=== PATIENT | female | born 1990 | race Caucasian/White ===

== ENCOUNTER 2017-11-05 10:46 | Emergency (ER) | payer BC, MEDICAID ==
[2017-11-05] MEDS ORDERED: NS 0.9% 1000 ML* 1,000 ML IV ONE (11:10)
[2017-11-05] MEDS ORDERED: Ondansetron INJ* 2 MG/ML VIAL IV ONE (11:10)
--- NOTE | 2017-11-05 11:15 | ED ---
- HPI Summary HPI Summary: Patient is a 27 her old female who presents emergency department for nausea and vomiting 5 days. Patient is currently 17 weeks . A0. Patient has been following with OB and has had a confirmed intrauterine . Reports no complications thus far with this other than frequent N/V. Pt. states she has not kept down any liquid in the last 5 days. Reports constipation. Denies urinary sxs, vaginal bleeding or discharge. Admits to mild lower abd. pain. Symptoms are moderate in severity. No current modifying factors. Pt. states she has tried zofran, unisom, stephen and another prescribed antiemetic with no improvement. - History of Current Complaint Chief Complaint: EDOBProblems Stated Complaint: VOMITING-17WKS PREG Time Seen by Provider: 11/05/17 11:01 Pain Intensity: 5 - Assessment Hx Now: No - Allergies/Home Medications Allergies/Adverse Reactions: Allergies Allergy/AdvReac Type Severity Reaction Status Date / Time codeine Allergy Severe Vomiting Verified 11/05/17 11:05 PMH/Surg Hx/FS Hx/Imm Hx Endocrine/Hematology History: Denies: Hx Diabetes, Hx Thyroid Disease Cardiovascular History: Denies: Hx Hypertension Respiratory History: Denies: Hx Asthma, Hx Chronic Obstructive Pulmonary Disease (COPD) GI History: Reports: Other GI Disorders - RUQ pain with palpation by . Denies: Hx Ulcer Infectious Disease History: No Infectious Disease History: Denies: Hx Clostridium Difficile, Hx Hepatitis, Hx Human Immunodeficiency Virus (HIV), Hx of Known/Suspected MRSA, Hx Shingles, Hx Tuberculosis, Hx Known/ Suspected VRE, Hx Known/Suspected VRSA, History Other Infectious Disease, Traveled Outside the in Last 30 Days - Social History Occupation: Employed Full-time Lives: With Family Alcohol Use: Occasionally Substance Use Type: Reports: None Smoking Status (MU): Heavy Every Day Tobacco Smoker Type: Cigarettes Amount Used/How Often: 5 CIG/DAY Review of Systems Constitutional: Negative Positive: Fever, Chills Eyes: Negative ENT: Negative Cardiovascular: Negative Respiratory: Negative Positive: Abdominal Pain, Vomiting, Nausea Genitourinary: Negative Positive: burning, dysuria, discharge, frequency Musculoskeletal: Negative Skin: Negative Neurological: Negative All Other Systems Reviewed And Are Negative: Yes Physical Exam - Physical Exam Triage Information Reviewed: Yes Vital Signs Reviewed: Yes Appearance: Positive: Well-Appearing - Pt. sitting up in bed in NAD. Skin: Positive: Warm, Dry Eyes: Positive: Normal Respiratory/Lung Sounds: Positive: Clear to Auscultation, Breath Sounds Present Cardiovascular: Positive: Normal, RRR Abdomen Description: Positive: Other: - Obese. Abdomen is soft and nontender throughout. Sickness or guarding. Neurological: Positive: Normal, CN Intact II-III Psychiatric: Positive: Normal Diagnostics - Vital Signs Vital Signs Temp Pulse Resp BP Pulse Ox 11/05/17 10:56 97 F 99 16 130/86 98 - Laboratory Result Diagrams: 11/05/17 11:22 11/05/17 11:22 Lab Statement: Any lab studies that have been ordered have been reviewed, and results considered in the medical decision making process. Course/Dx - Course Course Of Treatment: Patient presenting to emergency Department in early second trimester for ongoing nausea and vomiting 5 days. She is afebrile stable vital signs. Patient has no reproducible abdominal pain on exam is benign abdomen. We will check basic labs and urine. Patient started on IV fluids and Zofran. Labs are unremarkable. Results were discussed. On re-exam pt. is resting comfortably and tolerating PO fluids. 40meq PO K was given. Pt. is comfortable going home. To call her OB tomorrow for f.u. To return to ER if sxs change or worsen. - Differential Diagnosis/HQI/PQRI: Hyperemesis Gravidarum, UTI - Diagnoses Provider Diagnoses: Hyperemesis gravidarum Discharge - Sign-Out/Discharge Documenting (check all that apply): Discharge - Discharge Plan Condition: Good Disposition: HOME Patient Education Materials: Hyperemesis Gravidarum (ED), Hypokalemia (ED) Referrals: No Primary Care Phys,NOPCP [Primary Care Provider] - Additional Instructions: Follow up with your OB as scheduled Increase fluids Return to ER if symptoms change or worsen - Billing Disposition and Condition Condition: GOOD Disposition: HOME
[2017-11-05 11:41] LABS: ABS Basophils 0.1 10^3/ul (0-0.2); ABS Eosinophils 0.1 10^3/ul (0-0.6); ABS Lymphocytes 2.3 10^3/ul (1.0-4.8); ABS Monocytes 0.5 10^3/ul (0-0.8); ABS Neutrophils 7.6 10^3/ul (1.5-7.7); ABS Nucleated RBC 0 10^3/ul; Eosinophil % 0.5 % (0-6); Hematocrit 33 % (35-47); Hemoglobin 11.7 g/dl (12.0-16.0); Lymphocyte % 21.7 % (25-47); Mean Corpuscular HGB Conc 36 g/dl (31-36); Mean Corpuscular Hemoglobin 31 pg (27-31); Mean Corpuscular Volume 88 fL (80-97); Mean Platelet Volume 7.6 um3 (7.4-10.4); Nucleated Red Blood Cells % 0; Platelet Count 221 10^3/ul (150-450); Red Blood Count 3.72 10^6/ul (4.0-5.4); Red Cell Distribution Width 13 % (10.5-15); White Blood Count 10.6 10^3/ul (3.5-10.8)
[2017-11-05 12:00] LABS: EGFR Non-African American 139.4 (>60)
[2017-11-05] MEDS: Potassium Chlor TAB* 20 MEQ TAB.ER PO ONE ×2 (12:27→12:45)
[2017-11-05 12:54] LABS: Urine Appearance Clear; Urine Blood Negative (Negative); Urine Color Straw; Urine Ketones Negative (Negative); Urine Protein Negative (Negative); Urine Specific Gravity 1.002 (1.010-1.030); Urine Urobilinogen Negative (Negative)
[2017-11-05 13:19] VITALS: BP 107/69
== END 2017-11-05 13:16 | disposition home or self-care (01) ==
LOC: ED 10:46
DX: O21.0 Mild hyperemesis gravidarum (principal); Z3A.17 17 weeks gestation of pregnancy; R10.9 Unspecified abdominal pain; F17.210 Nicotine dependence, cigarettes, uncomplicated
CPT/HCPCS: 36415; 80053; 81003; 85025; 96374; 99283; A9270-GY; J2405

== ENCOUNTER 2017-12-23 19:25 | Emergency (ER) | payer MEDICAID, OTHER ==
[2017-12-23] MEDS ORDERED: Metoclopramide IV* 5 MG/ML 2 ML VIAL ONE (19:59)
[2017-12-23] MEDS ORDERED: NS 0.9% 1000 ML* 2,000 ML IV ONE (20:06)
[2017-12-23] MEDS ORDERED: Acetaminophen TAB* 325 MG PO ONE (20:06)
[2017-12-23] MEDS ORDERED: Metoclopramide IV* 5 MG/ML 2 ML VIAL IV SLOW PU ONE (20:15)
[2017-12-23] MEDS ORDERED: Famotidine IV* 10 MG/ML 2 ML (20 mg) IV SLOW PU ONE (20:16)
[2017-12-23 20:35] LABS: ABS Basophils 0 10^3/ul (0-0.2); ABS Eosinophils 0.1 10^3/ul (0-0.6); ABS Lymphocytes 2.5 10^3/ul (1.0-4.8); ABS Monocytes 0.7 10^3/ul (0-0.8); ABS Neutrophils 8.6 10^3/ul (1.5-7.7); ABS Nucleated RBC 0 10^3/ul; Eosinophil % 0.4 % (0-6); Hematocrit 34 % (35-47); Hemoglobin 11.7 g/dl (12.0-16.0); Lymphocyte % 20.9 % (25-47); Mean Corpuscular HGB Conc 35 g/dl (31-36); Mean Corpuscular Hemoglobin 31 pg (27-31); Mean Corpuscular Volume 89 fL (80-97); Mean Platelet Volume 7.8 um3 (7.4-10.4); Nucleated Red Blood Cells % 0; Platelet Count 223 10^3/ul (150-450); Red Blood Count 3.76 10^6/ul (4.0-5.4); Red Cell Distribution Width 13 % (10.5-15); Urine Appearance Clear; Urine Blood Negative (Negative); Urine Color Straw; Urine Ketones Negative (Negative); Urine Protein Negative (Negative); Urine Specific Gravity 1.002 (1.010-1.030); Urine Urobilinogen Negative (Negative); White Blood Count 11.9 10^3/ul (3.5-10.8)
[2017-12-23 20:57] LABS: EGFR Non-African American 136.5 (>60)
[2017-12-23] MEDS ORDERED: Potassium Chlor TAB* 20 MEQ TAB.ER PO ONE ×2 (21:00→22:14)
[2017-12-23 22:36] VITALS: BP 121/70
--- NOTE | 2017-12-23 22:38 | ED ---
Chelly Betts Emily, scribed for Minh Watson MD on 12/23/17 at 2013 . GI/ HPI - HPI Summary HPI Summary: This patient is a 27 year old F referred to [facility] by DENTAL LAB TECHNICIAN with a chief complaint of hematemesis that began today. Pt reports that she is 24 weeks and A0. The patient rates the pain 8/10 in severity. Symptoms aggravated by nothing. Symptoms alleviated by nothing. Patient reports burning chest and occasional diarrhea. Patient denies abd pain. Patient reports that she has been vomiting for the entirety of her . - History of Current Complaint Chief Complaint: EDNauseaVomitDiarrh Time Seen by Provider: 12/23/17 19:54 Stated Complaint: 24 WEEKS PREG/VOMITING BLOOD Hx Obtained From: Patient Hx Last Menstrual Period: 10/23/14 Onset/Duration: Started Days Ago, Atraumatic, Still Present Timing: Constant Severity: Severe Current Severity: Severe Pain Intensity: 8 Additional Signs & Symptoms: Positive: Other: - Positive burning chest and occasional diarrhea. Negative abd pain Aggravating Factor(s): Nothing Alleviating Factor(s): Nothing - Allergy/Home Medications Allergies/Adverse Reactions: Allergies Allergy/AdvReac Type Severity Reaction Status Date / Time codeine Allergy Severe Vomiting Verified 11/05/17 11:05 Home Medications: Home Medications NK [No Home Medications Reported] 12/23/17 [History Confirmed 12/23/17] PMH/Surg Hx/FS Hx/Imm Hx Previously Healthy: No Endocrine/Hematology History: Denies: Hx Diabetes, Hx Thyroid Disease Cardiovascular History: Denies: Hx Hypertension Respiratory History: Denies: Hx Asthma, Hx Chronic Obstructive Pulmonary Disease (COPD) GI History: Reports: Other GI Disorders - RUQ pain with palpation by . Denies: Hx Ulcer Infectious Disease History: No Infectious Disease History: Denies: Hx Clostridium Difficile, Hx Hepatitis, Hx Human Immunodeficiency Virus (HIV), Hx of Known/Suspected MRSA, Hx Shingles, Hx Tuberculosis, Hx Known/ Suspected VRE, Hx Known/Suspected VRSA, History Other Infectious Disease, Traveled Outside the [place] in Last 30 Days - Family History Known Family History: Positive: Diabetes - Social History Occupation: Employed Full-time Lives: With Family Alcohol Use: Occasionally Hx Substance Use: No Substance Use Type: Reports: None Hx Tobacco Use: Yes Smoking Status (MU): Heavy Every Day Tobacco Smoker Type: Cigarettes Amount Used/How Often: 5 CIG/DAY Review of Systems Positive: Other - Positive "burning" chest Positive: Diarrhea, Other - Positive hematemesis. Negative: Abdominal Pain All Other Systems Reviewed And Are Negative: Yes Physical Exam - Summary Physical Exam Summary: VITAL SIGNS: Reviewed. GENERAL: ~Patient is a well-developed and nourished (MALE OR FEMALE) who is lying comfortable in the stretcher. Patient is not in any acute respiratory distress. HEAD AND FACE: No signs of trauma. No ecchymosis, hematomas or skull depressions. No sinus tenderness. EYES: PERRLA, EOMI x 2, No injected conjunctiva, no nystagmus. EARS: Hearing grossly intact. Ear canals and tympanic membranes are within normal limits. MOUTH: Oropharynx within normal limits. NECK: Supple, trachea is midline, no adenopathy, no JVD, no carotid bruit, no c- spine tenderness, neck with full ROM. CHEST: Symmetric, no tenderness at palpation LUNGS: Clear to auscultation bilaterally. No wheezing or crackles. CVS: Regular rate and rhythm, S1 and S2 present, no murmurs or gallops appreciated. ABDOMEN: Soft, non-tender. No signs of distention. No rebound no guarding, and no masses palpated. Bowel sounds are normal. Fundal level is at 24 weeks EXTREMITIES: FROM in all major joints, no edema, no cyanosis or clubbing. NEURO: Alert and oriented x 3. No acute neurological deficits. Speech is normal and follows commands. SKIN: Dry and warm Triage Information Reviewed: Yes Vital Signs On Initial Exam: Initial Vitals Temp Pulse Resp BP Pulse Ox 98.3 F 80 16 117/68 99 12/23/17 19:28 12/23/17 19:28 12/23/17 19:28 12/23/17 19:28 12/23/17 19:28 Vital Signs Reviewed: Yes Diagnostics - Vital Signs Vital Signs Temp Pulse Resp BP Pulse Ox 12/23/17 19:28 98.3 F 80 16 117/68 99 - Laboratory Result Diagrams: 12/23/17 20:22 12/23/17 20:22 Lab Statement: Any lab studies that have been ordered have been reviewed, and results considered in the medical decision making process. Re-Evaluation - Re-Evaluation First Eval Re-Evaluation Time: :15 Change: Improved Comment: Discussed plan of care with the patient GIGU Course/Dx - Course Assessment/Plan: This patient is a 27 year old F referred to [facility] by DENTAL LAB TECHNICIAN with a chief complaint of hematemesis that began today. Pt reports that she is 24 weeks and . Bloodwork and UA obtained. In the ED course, the patient received Tylenol, Pepcid, Reglan, and fluids. Patient will be discharged home with potassium and with follow up from PCP and DENTAL LAB TECHNICIAN. Patient is agreeable with this plan. - Diagnoses Provider Diagnoses: Vomiting Discharge - Sign-Out/Discharge Documenting (check all that apply): Discharge/Admit/Transfer - Discharge home - Discharge Plan Condition: Stable Disposition: HOME Patient Education Materials: Nausea and Vomiting in (ED) Referrals: [facility] PHYSICIAN REFERRAL [Outside] - 3 Days [facility] [Provider Group] - 3 Days Additional Instructions: TAKE POTASSIUM 4 HOURS FROM NOW RETURN TO THE EMERGENCY DEPARTMENT FOR NEW OR WORSENING SYMPTOMS The documentation as recorded by the Chelly pino Emily accurately reflects the service I personally performed and the decisions made by me, Minh Watson MD.
== END 2017-12-23 22:38 | disposition home or self-care (01) ==
LOC: ED 19:25
DX: O21.2 Late vomiting of pregnancy (principal); O99.332 Smoking (tobacco) complicating pregnancy, second trimester; Z3A.24 24 weeks gestation of pregnancy; Z88.5 Allergy status to narcotic agent
CPT/HCPCS: 36415; 80053; 81003; 82150; 83690; 85025; 96374; 96375; 99282; A9270-GY; J2765

== ENCOUNTER 2018-04-09 19:29 | Inpatient (IN) | payer OTHER ==
[2018-04-10] MEDS ORDERED: Nicotine PATCH 7 MG/24 HR* PATCH TRANSDERM SCH (16:00)
[2018-04-10] MEDS ORDERED: Ibuprofen TAB* 600 MG ONE (16:21)
--- NOTE | 2018-04-10 16:43 | HP ---
General Information - Reason for Visit SROM, early labor - General Information Maternal Age: 28 Grav: 2 Para: 1 SAB: 0 IEA: 0 Estimated Due Date: 04/12/18 Determined By: LMP Maternal Blood Type and Rh: O Positive - Results this Serology/RPR Result: Non-Reactive Rubella Result: Immune HBsAg Result: Negative HIV Result: Negative GBS Culture Result: Negative Past Medical History Delivery History: Hx Uncomplicated Vaginal Delivery Pertinent Past Medical History: See Records - GUPTA, tobacco use Pertinent Past Surgical History: None Pertinent Family History: See Records - DM, HTN, other CA, br CA - Antepartal Records Antepartal Records: Reviewed, Complicated by: - nausea and vomiting and maternal weight loss, BMI 35 Review of Systems Constitutional: Uncomfortable CV Complaint: No Respiratory: Shortness of Breath: No Gastrointestinal: Nausea, Vomiting Genitourinary: Leaking Fluid, No Bleeding Musculoskeletal: Contractions Neurological: No Headache, No Visual Changes Movement: Normal Exam Allergies/Adverse Reactions: Allergies codeine Allergy (Severe, Verified 04/09/18 22:18) Vomiting Heavy chest Vital Signs 04/10/18 04/10/18 15:23 16:26 Temperature 97.6 F 97.5 F Pulse Rate 98 90 Respiratory 18 20 Rate Blood Pressure 117/72 112/69 (mmHg) Lab Values - Entire Visit: Laboratory Tests 04/09/18 20:10 Vag Amniotic Fld Detect Positive - Measurements Height: 5 ft 5 in Weight: 190 lb Weight in lbs: [id number] Body Mass Index (BMI): 31.6 Pre- Weight: 217 lb Weight Gained This : -27 lbs and 0 ozs - Exam Breast: Breast Exam Deferred CVA: No CVA Tenderness Extremities: No Edema Heart: Normal Rhythm/Heart Sounds HEENT: No Significant Findings Lungs: Clear Bilaterally Rectal: Rectal Exam Deferred Reflexes: DTR 2+ Thyroid: No Thyromegaly - Abdominal Exam Abdomen Exam: Fundal Height Consistent with Dates - Ultrasound/Biophysical Profile Ultrasound Status: Not Done Targeted Exam Findings Estimated Weight: 7.5lbs Cervical Exam: 3cm Effacement: 90% Presenting Part: Vertex Membrane Status: Leaking Amniotic Fluid Evaluation: Positive ROM Plus Bleeding/Discharge: None EFM Findings - External Monitor Findings Baseline Heart Rate: 135 External Monitor Findings: Accelerations Present, No Pattern of Variable or Late Decelerations, Variability Moderate, Baseline Stable Contractions: Irregular, Mild, < 45 Seconds, 45-90 Seconds Assessment/Plan - Assessment 28 y.o. SROM, early labor - Plan Plan: Admit - Anticipate Vaginal Delivery - Date/Time of Admission Date of Admission: 04/10/18 Time of Admission: 08:00
[2018-04-10] MEDS ORDERED: Acetaminophen TAB* 325 MG PO PRN (16:48)
[2018-04-10] MEDS ORDERED: Witch Hazel PAD* JAR TOPICAL PRN (16:48)
[2018-04-10] MEDS ORDERED: Glycerin ADULT SUPP PR PRN (16:48)
[2018-04-10] MEDS ORDERED: Ibuprofen TAB* 600 MG PO PRN (16:48)
[2018-04-10] MEDS ORDERED: Dibucaine 1% 28.35 GM TUBE PR PRN (16:48)
--- NOTE | 2018-04-10 16:48 | PN ---
Progress Note - Progress Note Date of Service: 04/10/18 - 12:00 SOAP: Subjective: [Pt reports increased discomfort and frequency of contractions since walk this AM. Pt requests nitrous oxide.] Objective: [BP: 115/81. NST: baseline 120, + accels, -decels, mod variability. Cervix: 7/ 100/-1] Assessment: [28 y.o. active labor 39w5d EGA] Plan: [1) Nitrous oxide 2) anticipate vaginal delivery]
--- NOTE | 2018-04-10 16:53 | PROCNOTE ---
[facility] OB: Delivery Note - Delivery A Date of : 04/10/18 Time of : 13:17 Sex: Male Gestational Age in Weeks and Days at Delivery: 39 Weeks and 5 Days Delivery Method: Spontaneous Vaginal Labor: Spontaneous Did Patient attempt ?: N/A, No Previous Amniotic Fluid: Clear Estimated Blood Loss: 100 Anesthesia/Analgesia: Nitrous-Labor Delivered By: Venessa Acosta - Nursery Level of Nursery: Regular/Bedside - Perineum Perineal Injury: None/Intact Perineal Repair: None
[2018-04-10] MEDS ORDERED: Simethicone TAB* 80 MG TAB.CHEW PO SCH (17:30)
[2018-04-10] MEDS: Docusate CAP* 100 MG PO SCH (20:40)
[2018-04-11 07:38] VITALS: BP 106/71
[2018-04-11] MEDS: Docusate CAP* 100 MG PO SCH (08:27)
[2018-04-11 08:30] LABS: ABS Basophils 0 10^3/ul (0-0.2); ABS Eosinophils 0 10^3/ul (0-0.6); ABS Lymphocytes 2.5 10^3/ul (1.0-4.8); ABS Monocytes 0.9 10^3/ul (0-0.8); ABS Neutrophils 8.3 10^3/ul (1.5-7.7); ABS Nucleated RBC 0 10^3/ul; Eosinophil % 0.3 % (0-6); Hematocrit 34 % (35-47); Hemoglobin 12.1 g/dl (12.0-16.0); Lymphocyte % 21.2 % (25-47); Mean Corpuscular HGB Conc 35 g/dl (31-36); Mean Corpuscular Hemoglobin 31 pg (27-31); Mean Corpuscular Volume 87 fL (80-97); Mean Platelet Volume 8.9 um3 (7.4-10.4); Nucleated Red Blood Cells % 0; Platelet Count 185 10^3/ul (150-450); Red Blood Count 3.93 10^6/ul (4.00-5.40); Red Cell Distribution Width 13 % (10.5-15); White Blood Count 11.7 10^3/ul (3.5-10.8)
[2018-04-11] MEDS ORDERED: Ferrous Gluconate TAB* 324 MG TAB PO SCH (09:00)
[2018-04-11 09:06] LABS: EGFR Non-African American 127.2 (>60)
== END 2018-04-11 15:20 | disposition home or self-care (01) | DRG 560 ==
LOC: MCHOBOUT 19:29 → MCHOB 20:58
PROVIDERS: ADMIT Midwife; ATTEND Midwife
PROC: 10E0XZZ Delivery of Products of Conception, External Approach (ICD-10-PCS; principal; 2018-04-09)
PROC: 4A1HXCZ Monitoring of Products of Conception, Cardiac Rate, External Approach (ICD-10-PCS; 2018-04-09)
DX: O26.13 Low weight gain in pregnancy, third trimester (principal); O21.9 Vomiting of pregnancy, unspecified; R63.4 Abnormal weight loss; Z68.35 Body mass index [BMI] 35.0-35.9, adult; Z83.3 Family history of diabetes mellitus; Z82.49 Family history of ischemic heart disease and other diseases of the circulatory system; Z80.3 Family history of malignant neoplasm of breast; Z80.8 Family history of malignant neoplasm of other organs or systems; Z88.5 Allergy status to narcotic agent; Z3A.39 39 weeks gestation of pregnancy; Z37.0 Single live birth
CPT/HCPCS: 36415; 80053; 84112; 85025; A9270-GY

== ENCOUNTER 2018-06-30 06:55 | Emergency (ER) | payer OTHER ==
[2018-06-30] MEDS ORDERED: NS 0.9% 1000 ML* 1,000 ML IV ONE (07:30)
--- NOTE | 2018-06-30 07:40 | ED ---
GI/ HPI - HPI Summary HPI Summary: This patient is a 28 year old F presenting to [facility] accompanied by a male with a chief complaint of constant nausea and vomiting for approximate worsening in the last 6 weeks. Patient denies any pain. Pt states that this began a year ago , directly after becoming , but it became alarming in the last month and a half. She has lost 40 pounds. She went to her doctor, Dr. Cristobal, who told her that it was heartburn. She has been throwing up the heartburn pills he prescribed her. Both the pt and her significant other are concerned that Dr. Cristobal did not do any blood work or recommend a GI cocktail. Her baby was delivered on April 10 and is healthy. In the last month, she has had her period three times. PMHX none. SHX tobacco use, occasional EtOH. No SHx drugs. FHX breast cancer, lung cancer, skin cancer. RX none. - History of Current Complaint Chief Complaint: EDNauseaVomitDiarrh Time Seen by Provider: 06/30/18 07:23 Stated Complaint: VOMITING Hx Obtained From: Patient Hx Last Menstrual Period: 10/23/14 Onset/Duration: Started Weeks Ago Timing: Constant Severity: Severe Current Severity: Severe Pain Intensity: 0 Associated Signs and Symptoms: Positive: Nausea, Vomiting, Weight Loss - 40 lb Additional Signs & Symptoms: Positive: Menses Irregular - 3 times in a month - Allergy/Home Medications Allergies/Adverse Reactions: Allergies Allergy/AdvReac Type Severity Reaction Status Date / Time codeine Allergy Severe Vomiting Verified 04/09/18 22:18 Home Medications: Home Medications Omeprazole 40 mg PO DAILY 06/30/18 [History Confirmed 06/30/18] PMH/Surg Hx/FS Hx/Imm Hx Endocrine/Hematology History: Denies: Hx Diabetes, Hx Thyroid Disease Cardiovascular History: Denies: Hx Hypertension Respiratory History: Denies: Hx Asthma, Hx Chronic Obstructive Pulmonary Disease (COPD) GI History: Reports: Other GI Disorders - RUQ pain with palpation by . Denies: Hx Ulcer Infectious Disease History: No Infectious Disease History: Denies: Hx Clostridium Difficile, Hx Hepatitis, Hx Human Immunodeficiency Virus (HIV), Hx of Known/Suspected MRSA, Hx Shingles, Hx Tuberculosis, Hx Known/ Suspected VRE, Hx Known/Suspected VRSA, History Other Infectious Disease, Traveled Outside the [place] in Last 30 Days - Family History Known Family History: Positive: Diabetes, Other - skin, lung, breast cancer - Social History Alcohol Use: None Hx Substance Use: No Substance Use Type: Reports: None Hx Tobacco Use: Yes Smoking Status (MU): Current Every Day Smoker Type: Cigarettes Amount Used/How Often: 5 CIG/DAY Have You Smoked in the Last Year: Yes Review of Systems Positive: Vomiting, Nausea Positive: Other - no pain. Negative: Myalgia All Other Systems Reviewed And Are Negative: Yes Physical Exam - Summary Physical Exam Summary: VITAL SIGNS: Reviewed. GENERAL: Patient is a well-developed and nourished female who is lying comfortable in the stretcher. Patient is not in any acute respiratory distress. HEAD AND FACE: No signs of trauma. No ecchymosis, hematomas or skull depressions. No sinus tenderness. EYES: PERRLA, EOMI x 2, No injected conjunctiva, no nystagmus. EARS: Hearing grossly intact. Ear canals and tympanic membranes are within normal limits. MOUTH: Oropharynx within normal limits. NECK: Supple, trachea is midline, no adenopathy, no JVD, no carotid bruit, no c- spine tenderness, neck with full ROM. CHEST: Symmetric, no tenderness at palpation LUNGS: Clear to auscultation bilaterally. No wheezing or crackles. CVS: Regular rate and rhythm, S1 and S2 present, no murmurs or gallops appreciated. ABDOMEN: Soft, non-tender. No signs of distention. No rebound no guarding, and no masses palpated. Bowel sounds are normal. EXTREMITIES: FROM in all major joints, no edema, no cyanosis or clubbing. NEURO: Alert and oriented x 3. No acute neurological deficits. Speech is normal and follows commands. SKIN: Dry and warm Triage Information Reviewed: Yes Vital Signs On Initial Exam: Initial Vitals Temp Pulse Resp BP Pulse Ox 98.8 F 110 20 112/76 97 06/30/18 06:57 06/30/18 06:57 06/30/18 06:57 06/30/18 06:57 06/30/18 06:57 Vital Signs Reviewed: Yes Diagnostics - Vital Signs Vital Signs Temp Pulse Resp BP Pulse Ox 06/30/18 06:57 98.8 F 110 20 112/76 97 - Laboratory Result Diagrams: 06/30/18 07:39 06/30/18 07:39 Lab Statement: Any lab studies that have been ordered have been reviewed, and results considered in the medical decision making process. - CT Abd/pelvis CT Interpretation Completed By: Radiologist Summary of CT Findings: NO ACUTE CT PATHOLOGY OF THE VISUALIZED ABDOMEN OR PELVIS. ED physician has reviewed this report - EKG 07:36 Cardiac Rate: NL - 80 bpm EKG Rhythm: Sinus Rhythm ST Segment: Normal Summary of EKG Findings: Normal axis GIGU Course/Dx - Course Assessment/Plan: This patient is a 28 year old F presenting to [facility] accompanied by a male with a chief complaint of constant nausea and vomiting for approximate worsening in the last 6 weeks. Patient denies any pain. Pt states that this began a year ago, directly after becoming , but it became alarming in the last month and a half. She has lost 40 pounds. She went to her doctor, Dr. Cristobal, who told her that it was heartburn. She has been throwing up the heartburn pills he prescribed her. Both the pt and her significant other are concerned that Dr. Cristobal did not do any blood work or recommend a GI cocktail. Her baby was delivered on April 10 and is healthy. In the last month, she has had her period three times. PMHX none. SHX tobacco use, occasional EtOH. No SHx drugs. FHX breast cancer, lung cancer, skin cancer. RX none. Blood work without any significant abnormality. Beta-hCG is negative. Urinalysis negative for UTI. In the ED course the patient was given IV fluids, Zofran for nausea vomiting. Abdominopelvic CT impression: No acute pathology of the visualized abdomen or pelvis. After medications the patient was able to tolerate PO. The patient did not have any nausea and vomiting. Therefore, the patient will be discharged home with follow-up with primary care physician. If the patient continues to have the same symptoms she might benefit of a GI consult. However, I believe that the primary care physician continues to workup for this patient and if needed he will recommend a GI consult. I discussed all the findings and test results with the patient. Patient was instructed to return to the emergency room immediately if any of the symptoms return or worsens. Plan of care was discussed with the patient and understands and agrees. All questions were answered at patient satisfaction. There were no further complaints or concerns. Lung exam before discharge: CTA B /L. Good air exchange. No wheezing or crackles heard. CVS: S1 and S2 present. No murmurs appreciated. Patient is alert and oriented x 3. Patient is hemodynamically stable. Patient will be discharged home with follow up PCP in the next 2-3 days - Diagnoses Differential Diagnoses - Female: Constipation, Colitis, Diverticulitis, Pancreatitis, Pyelonephritis, Renal Calculi, Urinary Tract Infection Provider Diagnoses: Nausea & vomiting Discharge - Sign-Out/Discharge Documenting (check all that apply): Patient Departure - discharge - Discharge Plan Condition: Stable Disposition: HOME Prescriptions: Ondansetron ODT TAB* [Zofran 4 MG Odt TAB*] 4 mg PO Q6H PRN #10 tab.odt PRN Reason: Vomiting Patient Education Materials: Acute Nausea and Vomiting (ED) Referrals: [facility] [place] PHYSICIAN REFERRAL [Outside] - 3 Days Additional Instructions: RETURN TO THE EMERGENCY DEPARTMENT FOR NEW OR WORSENING SYMPTOMS - Billing Disposition and Condition Condition: STABLE Disposition: Home - Attestation Statements Document Initiated by Christy: Yes Documenting Scribe: Daniel Ayala Provider For Whom Christy is Documenting (Include Credential): Suhail Lamb MD Scribe Attestation: Daniel Betts scribed for Suhail Lamb MD on 06/30/18 at 1812. Scribe Documentation Reviewed: Yes Provider Attestation: The documentation as recorded by the Daniel pino accurately reflects the service I personally performed and the decisions made by me, Suhail Lamb MD Status of Scribe Document: Viewed
[2018-06-30 07:52] LABS: ABS Basophils 0.1 10^3/ul (0-0.2); ABS Eosinophils 0.2 10^3/ul (0-0.6); ABS Monocytes 0.5 10^3/ul (0-0.8); ABS Neutrophils 3.8 10^3/ul (1.5-7.7); ABS Nucleated RBC 0 10^3/ul; Eosinophil % 3.5 %; Hematocrit 41 % (35-47); Hemoglobin 13.6 g/dl (12.0-16.0); Lymphocyte % 30.5 %; Mean Corpuscular HGB Conc 33 g/dl (31-36); Mean Corpuscular Hemoglobin 29 pg (27-31); Mean Corpuscular Volume 89 fL (80-97); Mean Platelet Volume 7.4 fL (7.4-10.4); Nucleated Red Blood Cells % 0; Platelet Count 249 10^3/ul (150-450); Red Blood Count 4.62 10^6/ul (4.00-5.40); Red Cell Distribution Width 14 % (10.5-15); White Blood Count 6.7 10^3/ul (3.5-10.8)
[2018-06-30 07:57] LABS: Urine Appearance Clear; Urine Blood 1+ (Negative); Urine Color Yellow; Urine Ketones Negative (Negative); Urine Protein Negative (Negative); Urine Red Blood Cell Trace(0-2/hpf) (Absent); Urine Specific Gravity 1.019 (1.010-1.030); Urine Urobilinogen Negative (Negative); Urine White Blood Cell Trace(0-5/hpf) (Absent)
[2018-06-30 08:10] LABS: EGFR Non-African American 77.1 (>60)
[2018-06-30] MEDS ORDERED: Ondansetron INJ* 2 MG/ML VIAL IV ONE (08:20)
[2018-06-30] MEDS ORDERED: Iohexol 300* (CONTRAST) 10 ML SDV IV ONE (08:51)
[2018-06-30 10:32] VITALS: BP 137/81
== END 2018-06-30 10:31 | disposition home or self-care (01) ==
LOC: ED 06:55
DX: R11.2 Nausea with vomiting, unspecified (principal); Z88.5 Allergy status to narcotic agent; F17.210 Nicotine dependence, cigarettes, uncomplicated
CPT/HCPCS: 36415; 74177; 80053; 81003; 81015; 83605; 83690; 83735; 84484; 84702; 85025; 86140; 87086; 93005; 96361; 96374; 99282; J2405; Q9967